=== PATIENT | female | born 1970 | race Caucasian/White ===

== ENCOUNTER 2021-12-17 09:46 | Inpatient (IN) | payer OTHER, MEDICAID ==
[~2021-12-17] VITALS: Ht 162.6 cm; Wt 104.0 kg
[2021-12-17] VITALS (13 sets, daily range): BP systolic 55–158; BP diastolic 16–124
[~2021-12-17 09:46] MED LIST: SULF-35
[2021-12-17] MEDS ORDERED: SODIUM CHLORIDE 0.9% 1,000 ML IVB ONE (11:00)
[2021-12-17] MEDS ORDERED: IOHEXOL 300 MG/ML 100ML BOTTLE IJ ONE (11:08)
[2021-12-17 11:20] LABS: Basophils # (auto) 0 10 ^3/uL (0-0.2); Basophils % (auto) 0.1 % (0.0-2.0); Eosinophils # (auto) 0 10 ^3/uL (0-0.8); Eosinophils % (auto) 0.1 % (0.0-7.0); Hematocrit 40.1 % (36.0-46.0); Hemoglobin 12.7 g/dL (12.2-16.2); Lymphocytes # (auto) 0.9 10 ^3/uL (0.4-5.4); Lymphocytes % (auto) 8.3 % (10.0-50.0); Mean Corpuscular Hgb Conc. 31.7 g/dL (32.0-36.0); Mean Corpuscular Volume 97.8 fL (80.0-100.0); Monocytes # (auto) 0.8 10 ^3/uL (0-1.3); Monocytes % (auto) 7.6 % (0.0-12.0); Neutrophils # (auto) 8.7 10 ^3/uL (1.6-8.6); Neutrophils % (auto) 83.9 % (37.0-80.0); Nucleated Red Blood Cells % 1.4 %; Red Cell Distribution Width 15.1 % (11.8-14.3); White Blood Cell 10.3 10^3/uL (4.4-10.8)
[2021-12-17] MEDS ORDERED: ONDANSETRON HCL 4 MG/2 ML VIAL IV ONE (11:45)
[2021-12-17] MEDS ORDERED: MORPHINE SULFATE 4 MG/ML SYR/VIAL IV ONE (11:45)
[2021-12-17 11:59] LABS: Lactic Acid w/Reflex 5.8 mmol/L (0.4-2.0)
[2021-12-17 12:08] LABS: INR 1.16 (0.9-1.15); Partial Thromboplastin Time 23.6 sec (23.6-33.0)
[2021-12-17 12:17] LABS: Albumin 2.3 g/dL (3.4-5.0); Calcium 8.7 mg/dL (8.5-10.1); Potassium 4.9 mmol/L (3.5-5.1)
[2021-12-17 12:20] LABS: BUN/Creatinine Ratio 6.8
[2021-12-17 12:22] LABS: Bilirubin, Total 0.5 mg/dL (0.2-1.0); Total Protein 6.9 g/dL (6.4-8.2)
[2021-12-17 12:25] LABS: Magnesium 2.8 mg/dL (1.6-2.6)
[2021-12-17] MEDS: NOREPINEPHRINE 8 MG/250ML KIT 250 ML IV SCH (12:46)
[2021-12-17] MEDS ORDERED: PANTOPRAZOLE 40 MG/10 ML VIAL INJ IV ONE ×2 (13:30→15:30)
[2021-12-17] MEDS ORDERED: SODIUM CHLORIDE 0.9% 2,000 ML IV ONE (14:15)
[2021-12-17] MEDS ORDERED: VANCOMYCIN PER PHARMACY 0 MG IV SCH (14:15)
[2021-12-17] MEDS ORDERED: metroNIDAZOLE 500MG/100ML 100 ML IV ONE (14:30)
[2021-12-17] MEDS ORDERED: InsuLIN REG 1unit/0.01ml Soln (100units/ml) IV ONE (14:45)
[2021-12-17] MEDS ORDERED: SODIUM CHLORIDE 0.9% 1,000 ML IV ONE ×2 (14:45→16:00)
[2021-12-17] MEDS ORDERED: VANCOMYCIN 1GM/250ML 250 ML IV ONE (15:00)
[2021-12-17] MEDS ORDERED: INSULIN LANTUS (GLARGINE) 1 /0.01ml (100units/ml) SC ONE (15:30)
[2021-12-17] MEDS ORDERED: DEXTROSE (50%) 50ML SYRG IV PRN (15:30)
[2021-12-17] MEDS ORDERED: ONDANSETRON HCL 4 MG/2 ML VIAL IV PRN (15:30)
[2021-12-17] MEDS ORDERED: ALBUMIN 25% 50 ML IV ONE (15:30)
[2021-12-17] MEDS ORDERED: FUROSEMIDE 40 MG/4 ML VIAL IV ONE (15:45)
[2021-12-17] MEDS ORDERED: InsuLIN R (HUMAN) 100 UNITS in SODIUM CHL 0.9% 99 ML IV SCH (16:15)
[2021-12-17] MEDS: ACCU-CHEK COMFORT CURVE STRIP VI SCH ×5 (16:46→23:14)
[2021-12-17] MEDS ORDERED: SODIUM BICARBONATE 8.4% INJ 50ML SYRINGE ONE ×3 (16:56→19:13)
[2021-12-17 17:00] LABS: Anion Gap 23 (5-15); Calcium 7.5 mg/dL (8.5-10.1); Chloride 105 mmol/L (98-107); Sodium 134 mmol/L (136-145)
[2021-12-17] MEDS ORDERED: SUCCINYLCHOLINE CHLORIDE 20 MG/ML 10ML VIAL IV ONE ×2 (17:00→17:15)
[2021-12-17] MEDS ORDERED: SODIUM BICARBONATE 8.4 % INJ 50ML VIAL IV ONE ×5 (17:00→19:00)
[2021-12-17] MEDS ORDERED: ETOMIDATE (2MG/ML) 20ML VIAL IV ONE ×2 (17:00→17:15)
[2021-12-17] MEDS ORDERED: MIDAZOLAM DRIP 50 mg/50mL 50 ML IV ONE (17:02)
[2021-12-17 17:03] LABS: BUN/Creatinine Ratio 8.3; Blood Urea Nitrogen 15 mg/dL (7-18); GFR African American 38 mL/min; GFR Non-African American 31 mL/min; Glucose 391 mg/dL (74-106)
[2021-12-17 17:05] LABS: Cholesterol 110 mg/dL (< 200)
[2021-12-17 17:08] LABS: HDL Cholesterol 19 mg/dL (40-59); LDL Cholesterol 67 mg/dL (< 100); Triglycerides 206 mg/dL (< 150)
[2021-12-17 17:13] LABS: Carbon Dioxide 6 mmol/L (21-32)
[2021-12-17] MEDS: MIDAZOLAM DRIP 50 mg/50mL 50 ML IV SCH (17:19)
[2021-12-17] MEDS: SODIUM CHLORIDE 0.9% 1,000 ML IV SCH ×2 (19:11→23:11)
[2021-12-17] MEDS ORDERED: OCTREOTIDE ACETATE 100 MCG in SODIUM CHL 0.9% 50 ML IV ONE (19:45)
[2021-12-17] MEDS ORDERED: VASOPRESSIN 50 UNITS in D5W 5% 247.5 ML IV SCH (19:45)
[2021-12-17] MEDS ORDERED: VASOPRESSIN 20 UNIT/ML ONE (19:46)
[2021-12-17] MEDS: PANTOPRAZOLE 40mg/50ML NS AE 50 ML IV SCH ×2 (20:29→23:20)
[2021-12-17] MEDS: OCTREOTIDE ACETATE 500 MCG in SODIUM CHL 0.9% 99 ML IV SCH (20:50)
[2021-12-17 21:47] LABS: Hemoglobin 11.5 g/dL (12.2-16.2)
[2021-12-17 21:49] LABS: Hematocrit 39.6 % (36.0-46.0)
[2021-12-17] MEDS ORDERED: metroNIDAZOLE 500MG/100ML 100 ML IV SCH (22:00)
[2021-12-17 22:02] LABS: BUN/Creatinine Ratio 7.8; Calcium 7.1 mg/dL (8.5-10.1); Potassium 5.5 mmol/L (3.5-5.1)
[2021-12-17] MEDS ORDERED: ALBUMIN 5% 250 ML IV ONE ×2 (22:30→22:37)
[2021-12-17] MEDS ORDERED: fentaNYL Drip 2500mCg/250mlNS 250 ML IV SCH (22:30)
[2021-12-17] MEDS ORDERED: PHENYLEPHRINE IV 250 ML IV ONE (22:30)
[2021-12-17] MEDS ORDERED: fentaNYL Drip 2500mCg/250mlNS 250 ML IV ONE (22:36)
[2021-12-17] MEDS: PHENYLEPHRINE IV 250 ML IV SCH (23:14)
[2021-12-18] VITALS (22 sets, daily range): BP systolic 51–159; BP diastolic 14–114
[2021-12-18] MEDS: ACCU-CHEK COMFORT CURVE STRIP VI SCH ×5 (00:16→06:05)
[2021-12-18] MEDS ORDERED: SODIUM BICARBONATE 8.4 % INJ 50ML VIAL IV ONE ×4 (00:51→11:44)
[2021-12-18] MEDS ORDERED: SODIUM BICARBONATE 8.4% INJ 50ML SYRINGE ONE ×2 (00:51→05:34)
[2021-12-18] MEDS ORDERED: SODIUM BICARBONATE 50ML VIAL 150 ML in SOD CHL 0.45% 1,000 ML IV SCH ×2 (01:00→04:00)
[2021-12-18] MEDS: PHENYLEPHRINE IV 250 ML IV SCH ×2 (01:18→05:48)
[2021-12-18] MEDS: NOREPINEPHRINE 8 MG/250ML KIT 250 ML IV SCH ×2 (01:19→05:46)
[2021-12-18] MEDS: MIDAZOLAM DRIP 50 mg/50mL 50 ML IV SCH (01:20)
[2021-12-18] MEDS: OCTREOTIDE ACETATE 500 MCG in SODIUM CHL 0.9% 99 ML IV SCH (01:51)
[2021-12-18] MEDS ORDERED: EPINEPHrine HCL 250 ML IV ONE (04:32)
[2021-12-18] MEDS ORDERED: EPINEPHrine HCL 250 ML IV SCH (04:45)
[2021-12-18 04:51] LABS: Albumin 1.4 g/dL (3.4-5.0); Calcium 6.4 mg/dL (8.5-10.1)
[2021-12-18 04:55] LABS: Bilirubin, Total 0.7 mg/dL (0.2-1.0); Total Protein 3.6 g/dL (6.4-8.2)
[2021-12-18 05:04] LABS: Potassium 6.1 mmol/L (3.5-5.1)
[2021-12-18 05:08] LABS: BUN/Creatinine Ratio 7.5
[2021-12-18] MEDS ORDERED: DEXTROSE (50%) 50ML SYRG IV ONE (05:45)
[2021-12-18] MEDS ORDERED: InsuLIN REG 1unit/0.01ml Soln (100units/ml) IV ONE (05:45)
[2021-12-18] MEDS ORDERED: SODIUM BICARBONATE 8.4% INJ 50ML SYRINGE IV ONE (05:45)
[2021-12-18] MEDS ORDERED: CALCIUM CHL 100MG/ML 1,000 MG in D5W 5% 100 ML IV ONE (05:45)
[2021-12-18] MEDS ORDERED: CALCIUM GLUC 1,000mg/50ml-NS 50 ML IV ONE ×2 (05:46→06:15)
[2021-12-18] MEDS: PANTOPRAZOLE 40mg/50ML NS AE 50 ML IV SCH (06:00)
[2021-12-18] MEDS ORDERED: INSULIN LANTUS (GLARGINE) 1 /0.01ml (100units/ml) SC SCH (10:00)
[2021-12-18] MEDS ORDERED: ENOXAPARIN SOD 40 MG/0.4 ML SYRINGE SC SCH (10:00)
[2021-12-18] MEDS ORDERED: PANTOPRAZOLE 40 MG/10 ML VIAL INJ IV SCH (10:00)
[2021-12-18] MEDS ORDERED: CALCIUM CHLOR(10%) 100MG/ML 10ML SYRINGE IV ONE (11:44)
[2021-12-18] MEDS ORDERED: EPINEPHrine HCL 1 MG/10 ML SYRG IV ONE (11:44)
== END 2021-12-18 11:45 | DRG 871 ==
LOC: ER 09:46 → EDBD 09:46 → OVERFLOW 15:23 → ICU WEST 19:15
PROVIDERS: ADMIT Registered Nurse; ATTEND Internal Medicine
PROC: 5A1935Z Respiratory Ventilation, Less than 24 Consecutive Hours (ICD-10-PCS; principal; 2021-12-17)
PROC: 0BH17EZ Insertion of Endotracheal Airway into Trachea, Via Natural or Artificial Opening (ICD-10-PCS; 2021-12-17)
PROC: 05HD33Z Insertion of Infusion Device into Right Cephalic Vein, Percutaneous Approach (ICD-10-PCS; 2021-12-17)
PROC: B54MZZA Ultrasonography of Right Upper Extremity Veins, Guidance (ICD-10-PCS; 2021-12-17)
PROC: 5A12012 Performance of Cardiac Output, Single, Manual (ICD-10-PCS; 2021-12-18)
DX: A41.9 Sepsis, unspecified organism (principal); E11.10 Type 2 diabetes mellitus with ketoacidosis without coma; K85.90 Acute pancreatitis without necrosis or infection, unspecified; J98.11 Atelectasis; N17.9 Acute kidney failure, unspecified; D35.01 Benign neoplasm of right adrenal gland; D64.9 Anemia, unspecified; E11.22 Type 2 diabetes mellitus with diabetic chronic kidney disease; E66.01 Morbid (severe) obesity due to excess calories; E88.09 Other disorders of plasma-protein metabolism, not elsewhere classified; Z20.822 Contact with and (suspected) exposure to COVID-19; F17.210 Nicotine dependence, cigarettes, uncomplicated; F12.90 Cannabis use, unspecified, uncomplicated; N18.32 Chronic kidney disease, stage 3b; Z88.0 Allergy status to penicillin; Z88.8 Allergy status to other drugs, medicaments and biological substances; Z90.710 Acquired absence of both cervix and uterus; Z68.39 Body mass index [BMI] 39.0-39.9, adult
CPT/HCPCS: 36415; 36600; 71045; 74176; 76705; 80048; 80053; 80061; 82010; 82150; 82805; 82962; 83036; 83605; 83690; 83735; 83930; 84100; 85014; 85018; 85025; 85610; 85730; 86850; 86900; 86901; 86920; 87040; 87070; 87077; 87081; 87205; 92950; 93005; 94003; 96361; 96365; 96367; 96368; 96372; 96375; 96376; 99291; C9113; G0378; J0171; J0330; J1815; J2250; J2405; J3490; J7060